=== PATIENT | female | born 1985 | race Two or more races ===

== ENCOUNTER → 2020-01-18 | Outpatient (CLI) | payer SELFPAY ==
--- NOTE | 2020-01-18 14:14 | RADIOLOGY REPORT (SQ) ---
EXAM DESCRIPTION: U/S [id number] TRNABD 1GES W/ODOP IMAGES COMPLETED DATE/TIME: 01/18/2020 2:01 pm REASON FOR STUDY: Z34.81 ENCOUNTER FOR SUPRVSN OF NORMAL , FIRST TRIMESTER Z34.81 ENCOUNTE R FOR SUPRVSN OF NORMAL , FIRST TRIM COMPARISON: None. TECHNIQUE: Transabdominal static and realtime grayscale images acquired of the pelvis. Additional se lected spectral and color Doppler images recorded. All images stored on PACs. bHCG: Not applicable. CLINICAL DATES: 9 weeks 3 days. LIMITATIONS: None. FINDINGS: FETUS: Single Living intrauterine . ULTRASOUND EGA: 8 weeks 3 days. ULTRASOUND MANOLO: 08/26/2020 EFW: Not applicable less than 20 weeks. CRL: 1.9 cm. FHR: 171 beats per minute. SURVEY: No visualized anomalies. AMNIOTIC FLUID: Adequate amount. PLACENTA: Not yet developed due to early gestation. SUBCHORIONIC BLEED: Yes SIZE OF BLEED: 1.9 x 1.6 x 1.1 cm. UTERUS: No masses. No anomalies. CERVICAL LENGTH: 3.7 cm. Closed. RIGHT ADNEXA: Normal ovary with normal vascular flow. 3 x 1.5 x 1.6 cm. No adnexal free fluid. No adnexal masses. LEFT ADNEXA: Normal ovary with normal vascular flow. 4.7 x 4.1 x 2.3 cm. No adnexal free fluid. No adnexal masses. FREE FLUID: None. OTHER: No other significant finding. IMPRESSION: LIVING INTRAUTERINE . EGA 8 weeks 3 days. Trimester of : First trimester - 0 to 13 weeks. TECHNICAL DOCUMENTATION: JOB ID: [id number] [employer]- All Rights Reserved rev-01/22 Reading location - IP/workstation name: [email or web address]
== END ==
LOC: RAD 12:52
PROVIDERS: ATTEND Midwife
DX: Z34.81 Encounter for supervision of other normal pregnancy, first trimester (principal); Z3A.08 8 weeks gestation of pregnancy
CPT/HCPCS: 76801

== ENCOUNTER 2020-02-14 22:19 | Emergency (ER) | payer SELFPAY ==
--- NOTE | 2020-02-14 23:05 | ER Document Report ---
ED Medical Screen (RME) - General Chief Complaint: Vaginal Bleeding Stated Complaint: VAGINAL BLEEDING Time Seen by Provider: 02/14/20 23:04 Primary Care Provider: YESSICA ALCANTARA CNM [Primary Care Provider] - Follow up as needed Information source: Patient Notes: Patient presents 12 weeks G7, P6. Patient states she developed low back pain, low pelvic pain and vaginal bleeding today. Patient states she has had spotting that is pink and brown in color. No urinary symptoms. Patient's blood type is O+. I have greeted and performed a rapid initial assessment of this patient. A c omprehensive ED assessment and evaluation of the patient, analysis of test results and completion of the medical decision making process will be conducted by additional ED providers. TRAVEL OUTSIDE OF THE [place] IN LAST 30 DAYS: No - Related Data Allergies/Adverse Reactions: No Known Allergies Allergy (Verified 12/24/14 05:55) Physical Exam - Vital signs Vitals: Temp Pulse Resp BP Pulse Ox 98.4 F 91 16 113/77 99 02/14/20 22:28 02/14/20 22:28 02/14/20 22:28 02/14/20 22:28 02/14/20 22:28 - General Notes: Lower pelvic, lower back tenderness Course - Vital Signs Vital signs: Temp Pulse Resp BP Pulse Ox 98.4 F 91 16 113/77 99 02/14/20 22:28 02/14/20 22:28 02/14/20 22:28 02/14/20 22:28 02/14/20 22:28 Doctor's Discharge - Discharge Referrals: YESSICA ALCANTARA CNM [Primary Care Provider] - Follow up as needed
--- NOTE | 2020-02-15 00:49 | RADIOLOGY REPORT (SQ) ---
EXAM DESCRIPTION: US TRANSVAGINAL COMPLETED DATE/TME: 02/14/2020 23:04 CLINICAL HISTORY: 34 years, Female, vag bleeding, low back/pelvic pain COMPARISON: 01/18/2020 TECHNIQUE: Emergent OB ultrasound LIMITATIONS: None. FINDINGS: The uterus measures 13 x 10 x 8 cm. There is an intrauterine gestational sac and pole. However, there are no detectable heart tones and findings are worrisome for demise. Ultrasound age is 9 weeks 2 days based on mean crown-rump length. The right ovary measures 2.8 x 1.4 x 1.4 cm, the left 3.5 x 1.4 x 1.5 cm. Normal flow to each ovary. No adnexal cyst or mass. No free fluid IMPRESSION: Intrauterine gestation with pole however there are no detectable heart tones. Findings are worrisome for demise. Close obstetric follow-up recommended copyright 2010 [employer]- All Rights Reserved
[2020-02-15 01:41] LABS: ABSOLUTE BASOPHILS # (AUTO) 0.1 10^3/uL (0.0-0.2); ABSOLUTE EOSINOPHILS # (AUTO) 0.1 10^3/uL (0.0-0.6); ABSOLUTE LYMPHOCYTES (AUTO) 2.1 10^3/uL (0.5-4.7); ABSOLUTE MONOCYTES (AUTO) 0.5 10^3/uL (0.1-1.4); BASOPHILS % (AUTO) 0.8 % (0-2); EOSINOPHILS % (AUTO) 0.7 % (0-6); HEMATOCRIT 40.2 % (36.0-47.0); HEMOGLOBIN 13.6 g/dL (12.0-15.5); LYMPHOCYTES % (AUTO) 21.7 % (13-45); MEAN CORPUSCULAR HEMOGLOBIN 29.8 pg (27.0-33.4); MEAN CORPUSCULAR HGB CONC 33.9 g/dL (32.0-36.0); MEAN CORPUSCULAR VOLUME 88 fl (80-97); PLATELET COUNT 219 10^3/uL (150-450); RED BLOOD COUNT 4.58 10^6/uL (3.72-5.28); RED CELL DISTRIBUTION WIDTH 14.2 % (11.5-14.0); SEGMENTED NEUTROPHILS % (AUTO) 71.8 % (42-78); TOTAL CELLS COUNTED % (AUTO) 100 %; WHITE BLOOD COUNT 9.7 10^3/uL (4.0-10.5)
[2020-02-15 01:52] LABS: APPEARANCE,URINE CLOUDY; BILIRUBIN,URINE NEGATIVE (NEGATIVE); COLOR,URINE YELLOW; GLUCOSE, URINE NEGATIVE (NEGATIVE); KETONES,URINE TRACE mg/dL (NEGATIVE); LEUKOCYTE ESTERASE,URINE TRACE (NEGATIVE); NITRITE,URINE NEGATIVE (NEGATIVE); PROTEIN,URINE 30 mg/dL (NEGATIVE); URINE SPECIFIC GRAVITY 1.035
[2020-02-15 01:55] LABS: ALBUMIN 4.3 g/dL (3.5-5.0); ALKALINE PHOSPHATASE 61 U/L (38-126); ANION GAP 8 (5-19); ASPARTATE AMINO TRANSFERASE 21 U/L (14-36); BILIRUBIN,TOTAL 0.4 mg/dL (0.2-1.3); BLOOD UREA NITROGEN 14 mg/dL (7-20); CALCIUM 9.9 mg/dL (8.4-10.2); CARBON DIOXIDE 25 mmol/L (22-30); CHLORIDE 103 mmol/L (98-107); GLUCOSE 103 mg/dL (75-110); POTASSIUM 4.8 mmol/L (3.6-5.0); TOTAL PROTEIN 7.9 g/dL (6.3-8.2)
[2020-02-15 02:14] LABS: ADD MANUAL MICROSCOPIC YES
[2020-02-15 02:15] LABS: BACTERIA,URINE TRACE /HPF
--- NOTE | 2020-02-15 04:20 | ER Document Report ---
ED General - General Chief Complaint: OB Problem (<20wks) Stated Complaint: VAGINAL BLEEDING Time Seen by Provider: 02/14/20 23:04 Primary Care Provider: YESSICA HAHN CNM [Primary Care Provider] - Follow up as needed Notes: 34-year-old female presents the emergency department complaining of vaginal bleeding starting within the past 24 hours. Says it is light pink and brown. Is not going through more than 1 pad per hour. Minimal lower abdominal pain. Patient is a G7, P6, according to dates she should be approximately 12 weeks gestation. Denies any trauma to the abdomen. Patient has had prior blood work and shows she is O+. TRAVEL OUTSIDE OF THE [place] IN LAST 30 DAYS: No - Related Data Allergies/Adverse Reactions: No Known Allergies Allergy (Verified 12/24/14 05:55) Home Medications: vit b6. vit Past Medical History - General Information source: Patient - Social History Smoking Status: Never Smoker Family History: Reviewed & Not Pertinent Patient has homicidal ideation: No Review of Systems - Review of Systems Constitutional: No symptoms reported Gastrointestinal: See HPI, Abdominal pain Female Genitourinary: See HPI, -: Yes All other systems reviewed and negative Physical Exam - Vital signs Vitals: Temp Pulse Resp BP Pulse Ox 98.4 F 91 16 113/77 99 02/14/20 22:28 02/14/20 22:28 02/14/20 22:28 02/14/20 22:28 02/14/20 22:28 Interpretation: Normal - Notes Notes: GENERAL: Alert, interacts well. No acute distress. HEAD: Normocephalic, atraumatic EYES: Pupils equal, round and reactive to light, extraocular movements intact. ENT: Oral mucosa moist, tongue midline. NECK: Full range of motion, supple, trachea midline. LUNGS: no respiratory distress. EXTREMITIES: Moves all 4 extremities spontaneously. No cyanosis. NEUROLOGICAL: Alert and oriented x3, normal speech. PSYCH: Normal mood, normal affect until given the news of the miscarriage then she is appropriately tearful. SKIN: Warm, Dry. Course - Re-evaluation Re-evalutation: 02/15/20 04:16 CBC unremarkable, CMP shows slightly low sodium 136.3, quantitative hCG is lower than expected for dates at 5662. Urinalysis shows trace ketones and trace leukocyte esterase, no blood. OB ultrasound is highly suspicious for miscarriage with absent heart tones and dates at 9 weeks gestation. Obstetrics Ultrasound 02/14/20 23:04 IMPRESSION: Intrauterine gestation with pole however there are no detectable heart tones. Findings are worrisome for demise. Close obstetric follow-up recommended copyright 2010 [employer]- All Rights Reserved Discussed with Dr. Hahn who states that women who have miscarriages between 8 and 12 weeks frequently have difficulty passing them on their own, recommends follow-up in his office to discuss D&C. Patient has old blood work on file showing blood type is O+. RhoGam is not indicated. Patient will have COVID swab performed today in order to prep for potential surgery. Patient's partner was informed in the room with her as well. Patient will be discharged home and given follow-up information for Dr. Hahn's office. - Vital Signs Vital signs: Temp Pulse Resp BP Pulse Ox 98.2 F 85 18 103/74 98 02/15/20 02:18 02/15/20 02:18 02/15/20 02:18 02/15/20 02:18 02/15/20 02:18 - Laboratory Result Diagrams: 02/15/20 01:09 02/15/20 01:09 Laboratory results interpreted by me: 02/15/20 02/15/20 02/15/20 01:09 01:09 01:09 RDW 14.2 H Sodium 136.3 L Beta HCG, Quant 5662.00 H Urine Protein 30 H Urine Ketones TRACE H Urine Urobilinogen 2.0 H Ur Leukocyte Esterase TRACE H Urine Ascorbic Acid 40 H Discharge - Discharge Clinical Impression: Miscarriage Condition: Stable Disposition: HOME, SELF-CARE Additional Instructions: Miscarriage Impending You have been evaluated for a possible miscarriage. At this time, it appears that the fetus has stopped growing. A miscarriage occurs when the fetus is abnormal. There is no medicine or treatment to prevent it. Based off the fact that the baby was 9 weeks old when it stopped growing you will likely need surgery. This is called a D&C procedure. You should rest in bed. Do not douche or have sex for at least a week, or until OK'd by the doctor. If you believe you've passed the fetus, collect it in a zip-lock plastic bag. Be sure to follow up with your doctor. Call the doctor or return for re- examination if there is an increase in bleeding or cramping, extreme weakness, fainting, fever, or passage of tissue. We have performed a COVID test this evening to look for the novel coronavirus and to make sure you are safe to have surgery. I have discussed your case with Dr. Hahn from [facility]. He would like you to call the office later today to arrange an appointment to follow-up on your miscarriage and discuss possible surgery. Forms: Return to Work, Parent Work Note Referrals: KATERINE HAHN MD [ACTIVE STAFF] - Follow up as needed
[2020-02-15 05:12] VITALS: BP 132/82
== END 2020-02-15 05:11 | disposition home or self-care (01) ==
LOC: ER 22:19
DX: Z03.818 Encounter for observation for suspected exposure to other biological agents ruled out (principal); O03.9 Complete or unspecified spontaneous abortion without complication; R10.30 Lower abdominal pain, unspecified; Z79.899 Other long term (current) drug therapy
CPT/HCPCS: 99284; 36415; 84702; 85025; 87635; 80053; 81001; 76817; C9803

== ENCOUNTER 2020-02-16 01:32 | Observation (INO) | payer SELFPAY ==
[2020-02-16] MEDS ORDERED: NORMAL SALINE 1000 ML 1,000 ML IV ONE ×2 (02:53→04:35)
--- NOTE | 2020-02-16 02:53 | ER Document Report ---
ED General - General Chief Complaint: OB Problem (<20wks) Stated Complaint: VAGINAL BLEEDING Primary Care Provider: YESSICA ALCANTARA CNM [Primary Care Provider] - Follow up as needed Notes: Patient is a 34-year-old female who is G7, P6 at approximately 3 months gestation who presents to the emergency department the chief complaint of heavy vaginal bleeding that began yesterday at 6 PM. Patient was seen here a day prior and had an ultrasound suspicious for demise. She has not followed up outpatient. She states that she was previously seeing the health department for . She admits to some mild suprapubic discomfort but otherwise complaining of ongoing bleeding of bright red blood with clotting. Denies history of miscarriage. Denies any other pain, complaints or concerns at this time. TRAVEL OUTSIDE OF THE [place] IN LAST 30 DAYS: No - Related Data Allergies/Adverse Reactions: No Known Allergies Allergy (Verified 02/16/20 02:28) Home Medications: Past Medical History - Social History Smoking Status: Never Smoker Family History: Reviewed & Not Pertinent Patient has homicidal ideation: No Review of Systems - Review of Systems Female Genitourinary: , Vaginal bleeding -: Yes All other systems reviewed and negative Physical Exam - Vital signs Vitals: Temp Pulse Resp BP Pulse Ox 98.6 F 150 H 16 139/76 H 99 02/16/20 01:46 02/16/20 01:46 02/16/20 01:46 02/16/20 01:46 02/16/20 01:46 - General General appearance: Alert, Anxious In distress: None - Respiratory Respiratory status: No respiratory distress Chest status: Nontender Breath sounds: Normal Chest palpation: Normal - Cardiovascular Rhythm: Regular Heart sounds: Normal auscultation - Abdominal Inspection: Normal Distension: No distension Bowel sounds: Normal Tenderness: Nontender Organomegaly: Other - Palpable gravid uterus suprapubic region - Genitourinary External exam: Normal Speculum exam: Other - Cervix not visualized due to heavy bleeding and clotting. Multiple clots removed, bleeding continues. Vaginal bleeding: Heavy Notes: Chaperoned by female tech and female nurse. - Back Back: No: CVA tenderness - Neurological Neuro grossly intact: Yes Cognition: Normal Orientation: AAOx4 Bear Coma Scale Eye Opening: Spontaneous [place] Coma Scale Verbal: Oriented Bear Coma Scale Motor: Obeys Commands [place] Coma Scale Total: 15 Speech: Normal - Psychological Associated symptoms: Normal affect, Normal mood - Skin Skin Temperature: Warm Skin Moisture: Dry Skin Color: Normal Course - Re-evaluation Re-evalutation: 02/16/20 03:56 EKG given patient's persistent tachycardia showing sinus tach at 134 bpm. Normal intervals. No STEMI. No prior for comparison. Interpreted by ED attending. Patient's blood pressure remains stable. A liter of normal saline was hung prophylactically. Patient has 2 large-bore IVs. She has persistent moderate to heavy bleeding with clot passage. This is been ongoing. Her hemoglobin is stable. Pending ultrasound will consult with OB for suspected admission for observation and possible D&C. 02/16/20 05:45 Patient's blood pressures remaining stable. Her heart rate is mildly tachycardic when in a resting position and jumps to the 170s with sitting up or any movement. She does appear slightly pale. She is still bleeding copious amounts. She appears slightly altered. 3 repeat hemoglobin series showed steady decrease in her hemoglobin since her arrival. Discussed with Dr. Hoffmann who recommended emergency blood transfusion and possible uterine tamponade until OB can be reached. OB was currently in a procedure in the operating room and could not be consulted. Patient is stable in Trendelenburg at this time with a stable blood pressure and heart rate of 121. She is in no obvious distress. 02/16/20 06:[address] Dominguez, [employer] at this time. She is going to come down right now and evaluate the patient in the ED. 02/16/20 07:08 Dr. Dominguez to bedside, evaluated the patient in the emergency department and will admit to the OR for further care and management. Patient pending rapid COVID testing prior to OR care. She is stable. - Vital Signs Vital signs: Temp Pulse Resp BP Pulse Ox 97.9 F 150 H 21 H 112/87 H 100 02/16/20 05:48 02/16/20 01:46 02/16/20 06:10 02/16/20 06:10 02/16/20 06:10 - Laboratory Result Diagrams: 02/16/20 05:07 02/16/20 02:20 Laboratory results interpreted by me: 02/16/20 02/16/20 02/16/20 02:20 02:20 03:11 WBC RBC Hgb Hct RDW 14.2 H Lymph % (Auto) 12.7 L Absolute Neuts (auto) 8.4 H Seg Neutrophils % 82.3 H Potassium 3.5 L Carbon Dioxide 21 L Glucose 129 H Beta HCG, Quant 4114.00 H Crossmatch See Detail 02/16/20 02/16/20 04:07 05:07 WBC 12.1 H 12.7 H RBC 3.70 L Hgb 11.3 L 10.9 L Hct 34.1 L 32.5 L RDW 14.3 H 14.2 H Lymph % (Auto) Absolute Neuts (auto) Seg Neutrophils % Potassium Carbon Dioxide Glucose Beta HCG, Quant Crossmatch Discharge - Discharge Clinical Impression: Incomplete , Vaginal bleeding, demise Anemia Qualifiers: Anemia type: unspecified type Qualified Code(s): D64.9 - Anemia, unspecified Condition: Serious Disposition: ADMITTED INPATIENT Admitting Provider: Dr. Dominguez Unit Admitted: OR Referrals: YESSICA ALCANTARA CNM [Primary Care Provider] - Follow up as needed
[2020-02-16 03:14] LABS: ABSOLUTE BASOPHILS # (AUTO) 0.1 10^3/uL (0.0-0.2); ABSOLUTE LYMPHOCYTES (AUTO) 1.3 10^3/uL (0.5-4.7); ABSOLUTE MONOCYTES (AUTO) 0.4 10^3/uL (0.1-1.4); ABSOLUTE NEUT (AUTO) 8.4 10^3/uL (1.7-8.2); BASOPHILS % (AUTO) 0.6 % (0-2); EOSINOPHILS % (AUTO) 0.2 % (0-6); HEMATOCRIT 39.6 % (36.0-47.0); HEMOGLOBIN 13.3 g/dL (12.0-15.5); LYMPHOCYTES % (AUTO) 12.7 % (13-45); MEAN CORPUSCULAR HEMOGLOBIN 29.6 pg (27.0-33.4); MEAN CORPUSCULAR HGB CONC 33.7 g/dL (32.0-36.0); MEAN CORPUSCULAR VOLUME 88 fl (80-97); MONOCYTES % (AUTO) 4.2 % (3-13); PLATELET COUNT 229 10^3/uL (150-450); RED BLOOD COUNT 4.52 10^6/uL (3.72-5.28); RED CELL DISTRIBUTION WIDTH 14.2 % (11.5-14.0); SEGMENTED NEUTROPHILS % (AUTO) 82.3 % (42-78); TOTAL CELLS COUNTED % (AUTO) 100 %; WHITE BLOOD COUNT 10.3 10^3/uL (4.0-10.5)
[2020-02-16 03:21] LABS: ALKALINE PHOSPHATASE 64 U/L (38-126); ANION GAP 10 (5-19); ASPARTATE AMINO TRANSFERASE 19 U/L (14-36); BILIRUBIN,TOTAL 0.5 mg/dL (0.2-1.3); BLOOD UREA NITROGEN 9 mg/dL (7-20); CALCIUM 9.2 mg/dL (8.4-10.2); CARBON DIOXIDE 21 mmol/L (22-30); CHLORIDE 107 mmol/L (98-107); GLUCOSE 129 mg/dL (75-110); POTASSIUM 3.5 mmol/L (3.6-5.0); TOTAL PROTEIN 7.3 g/dL (6.3-8.2)
[2020-02-16 03:32] LABS: INTERNATIONAL RATION (INR) 1.07; PARTIAL THROMBOPLASTIN TIME 29.6 SEC (23.5-35.8); PROTHROMBIN TIME 13.9 SEC (11.4-15.4)
[2020-02-16 04:21] LABS: HEMATOCRIT 34.1 % (36.0-47.0); HEMOGLOBIN 11.3 g/dL (12.0-15.5); MEAN CORPUSCULAR HEMOGLOBIN 29.4 pg (27.0-33.4); MEAN CORPUSCULAR HGB CONC 33.2 g/dL (32.0-36.0); MEAN CORPUSCULAR VOLUME 89 fl (80-97); PLATELET COUNT 195 10^3/uL (150-450); RED BLOOD COUNT 3.85 10^6/uL (3.72-5.28); RED CELL DISTRIBUTION WIDTH 14.3 % (11.5-14.0); WHITE BLOOD COUNT 12.1 10^3/uL (4.0-10.5)
--- NOTE | 2020-02-16 04:44 | RADIOLOGY REPORT (SQ) ---
FIRST TRIMESTER OBSTETRIC ULTRASOUND: 02/16/2020 3:40 AM CDT COMPARISON: Ultrasound from 02/14/2020 HISTORY: 34-year old patient with heavy bleeding, , declining quantitative beta hCG levels. TECHNIQUE: Multiple harvey scale and color Doppler images of the pelvis were obtained transabdominally and transvaginally. FINDINGS: The uterus measures 14.9 x 8.6 x 6.8 cm. No intrauterine gestational sac is seen. The endometrium is thickened and heterogeneous measuring at least 2.7 cm. No obvious increased color Doppler vascularity is seen. The cervix measures 3.6 cm in length. There is hyperechoic increased density seen at the vaginal canal consistent with hematoma formation or products of conception. The right and left ovaries are normal in size and sonographic appearance. The right ovary measures 3.8 x 1.4 x 2.2 cm. The left ovary measures 3.9 x 1.5 x 1.9 cm. Arterial and venous waveforms are obtained from both ovaries. There is a probable physiologic cyst at the left ovary measuring at least 2.1 cm. No free fluid is seen in the cul-de-sac. IMPRESSION: No intrauterine gestational sac is seen. The endometrium is thickened and heterogeneous. There are hypoechoic areas within the vaginal canal likely representing hematoma or products of conception. These findings most likely represent a failed intrauterine . Interval follow-up is recommended to exclude retained products of conception. Obstetric follow up for routine care should be performed.
[2020-02-16 05:21] LABS: HEMATOCRIT 32.5 % (36.0-47.0); HEMOGLOBIN 10.9 g/dL (12.0-15.5); MEAN CORPUSCULAR HEMOGLOBIN 29.5 pg (27.0-33.4); MEAN CORPUSCULAR HGB CONC 33.6 g/dL (32.0-36.0); MEAN CORPUSCULAR VOLUME 88 fl (80-97); PLATELET COUNT 212 10^3/uL (150-450); RED CELL DISTRIBUTION WIDTH 14.2 % (11.5-14.0); WHITE BLOOD COUNT 12.7 10^3/uL (4.0-10.5)
[2020-02-16] MEDS ORDERED: NORMAL SALINE 250 ML IV PRN ×2 (05:24)
[2020-02-16] MEDS ORDERED: TRANEXAMIC ACID INJ/PF 1,000 MG/10 ML SDV ONE (05:39)
[2020-02-16] MEDS ORDERED: TRANEXAMIC ACID INJ/PF 1,000 MG/10 ML SDV IV ONE (05:44)
[2020-02-16 07:27] LABS: ABSOLUTE BASOPHILS # (AUTO) 0.1 10^3/uL (0.0-0.2); ABSOLUTE LYMPHOCYTES (AUTO) 1.1 10^3/uL (0.5-4.7); ABSOLUTE MONOCYTES (AUTO) 0.6 10^3/uL (0.1-1.4); ABSOLUTE NEUT (AUTO) 11.2 10^3/uL (1.7-8.2); BASOPHILS % (AUTO) 0.4 % (0-2); EOSINOPHILS % (AUTO) 0.1 % (0-6); HEMATOCRIT 38.6 % (36.0-47.0); LYMPHOCYTES % (AUTO) 8.4 % (13-45); MEAN CORPUSCULAR HEMOGLOBIN 29.8 pg (27.0-33.4); MEAN CORPUSCULAR VOLUME 88 fl (80-97); MONOCYTES % (AUTO) 4.3 % (3-13); PLATELET COUNT 181 10^3/uL (150-450); RED CELL DISTRIBUTION WIDTH 14.3 % (11.5-14.0); SEGMENTED NEUTROPHILS % (AUTO) 86.8 % (42-78); TOTAL CELLS COUNTED % (AUTO) 100 %; WHITE BLOOD COUNT 12.9 10^3/uL (4.0-10.5)
[2020-02-16 07:31] LABS: HEMOGLOBIN 13.1 g/dL (12.0-15.5)
--- NOTE | 2020-02-16 07:53 | PDOC H&P ---
History of Present Illness Admission Date/PCP: YESSICA ALCANTARA CNM History of Present Illness: NIRMALA LUCERO is a 34 year old female at approximately 9-12 mos EGA by patient history. She reports having desired this but began to have heavy bleeding last night about 1830. Passing clots which made her come to ED No pain presently but cramping is heavy when clots pass. Past Medical History LMP: 11/13/19 Social History Smoking Status: Never Smoker Family History Family History: Reviewed & Not Pertinent Parental Family History Reviewed: Yes Children Family History Reviewed: Yes Sibling(s) Family History Reviewed.: Yes Medication/Allergy Home Medications: Ferrous Sulfate [Iron Supplement] 325 mg PO BID 12/24/14 No.137/Iron/Folic Acd [ Vitamin Tablet] 1 each PO DAILY 12/24/14 Allergies/Adverse Reactions: No Known Allergies Allergy (Verified 02/16/20 02:28) Review of Systems Constitutional: ABSENT: chills, fever(s), headache(s), weight gain, weight loss Cardiovascular: ABSENT: chest pain, dyspnea on exertion, edema, orthropnea, palpitations Respiratory: ABSENT: cough, hemoptysis Gastrointestinal: ABSENT: abdominal pain, constipation, diarrhea, hematemesis, hematochezia, nausea, vomiting Genitourinary: ABSENT: dysuria, hematuria Integumentary: ABSENT: rash, wounds Physical Exam - Physical Exam Vital Signs: Temp Pulse Resp BP Pulse Ox 97.9 F 150 H 21 H 112/87 H 100 02/16/20 05:48 02/16/20 01:46 02/16/20 06:10 02/16/20 06:10 02/16/20 06:10 Intake & Output 02/15/20 02/16/20 02/17/20 06:59 06:59 06:59 Intake Total 1999 Balance 1999 Weight 65.771 kg General appearance: PRESENT: no acute distress, cooperative Respiratory exam: PRESENT: clear to auscultation fortunato Cardiovascular exam: PRESENT: RRR, +S1, +S2 GI/Abdominal exam: PRESENT: soft, other - Uterus palpable at about 14 wks size Extremities exam: PRESENT: full ROM. ABSENT: calf tenderness, clubbing, pedal edema Neurological exam: PRESENT: alert, awake Skin exam: PRESENT: dry, warm - Gynecological Exam Labia: normal Urethra: normal Introitus: normal Perineum: normal, other - Pad with small amount of bleeding. NO clots Result Laboratory Results: 02/16/20 05:07 02/16/20 02:20 02/16/20 02/16/20 02/16/20 02:20 02:20 03:11 WBC 10.3 RBC 4.52 Hgb 13.3 Hct 39.6 MCV 88 MCH 29.6 MCHC 33.7 RDW 14.2 H Plt Count 229 Seg Neutrophils % 82.3 H Sodium 138.1 Potassium 3.5 L Chloride 107 Carbon Dioxide 21 L Anion Gap 10 BUN 9 Creatinine 0.62 Est GFR ( Amer) > 60 Glucose 129 H Calcium 9.2 Total Bilirubin 0.5 AST 19 Alkaline Phosphatase 64 Total Protein 7.3 Albumin 4.0 Blood Type O POSITIVE Antibody Screen NEGATIVE 02/16/20 02/16/20 04:07 05:07 WBC 12.1 H 12.7 H RBC 3.85 3.70 L Hgb 11.3 L 10.9 L Hct 34.1 L 32.5 L MCV 89 88 MCH 29.4 29.5 MCHC 33.2 33.6 RDW 14.3 H 14.2 H Plt Count 195 212 Seg Neutrophils % Sodium Potassium Chloride Carbon Dioxide Anion Gap BUN Creatinine Est GFR ( Amer) Glucose Calcium Total Bilirubin AST Alkaline Phosphatase Total Protein Albumin Blood Type Antibody Screen Impressions: Obstetrics Ultrasound 02/16/20 02:49 IMPRESSION: No intrauterine gestational sac is seen. The endometrium is thickened and heterogeneous. There are hypoechoic areas within the vaginal canal likely representing hematoma or products of conception. These findings most likely represent a failed intrauterine . Interval follow-up is recommended to exclude retained products of conception. Obstetric follow up for routine care should be performed. Assessment & Plan - Diagnosis (1) Anemia Qualifiers: Anemia type: unspecified type Qualified Code(s): D64.9 - Anemia, unspecified Is this a current diagnosis for this admission?: Yes (2) Incomplete Is this a current diagnosis for this admission?: Yes (3) Vaginal bleeding Is this a current diagnosis for this admission?: Yes - Plan Summary Plan Summary: 34 yo at approximately 12 wks by Patient record of LMP now with incomplete and heavy vaginal bleeding -VS with tachycardia. B/P stable presently -S/p tranexamic acid, bakri balloon and 2 units PRBCs -NOw with Hgb of 13.1, coags normal -RH positive -US at bedside showed POC -Discussed heavy vaginal bleeding and retained POC. Recommend suction D&C. -RIsks and benefits discused and consent signed -Covid 19 testing pending
--- NOTE | 2020-02-16 07:53 | EKG REPORT ---
SEVERITY:- OTHERWISE NORMAL ECG - SINUS TACHYCARDIA LEFT AXIS DEVIATION : Confirmed by: Clarissa Grigsby MD 16-Feb-2020 07:52:48
[2020-02-16] MEDS ORDERED: DEXTROSE 50%-WATER 25 GM/50 ML DISP.SYRIN IV PRN ×2 (11:09)
[2020-02-16] MEDS ORDERED: RINGERS SOLUTION,LACTATED 1,000 ML IV PRN ×2 (11:09→21:58)
[2020-02-16] MEDS ORDERED: GLUCAGON,HUMAN RECOMB 1 MG INJ SUBCUT PRN (11:09)
[2020-02-16] MEDS ORDERED: DEXTROSE 40% GEL 15 GM TUBE PO PRN ×2 (11:09)
[2020-02-16] MEDS ORDERED: RINGERS SOLUTION,LACTATED 1,000 ML IV ONE ×2 (11:10→22:45)
[2020-02-16] MEDS ORDERED: DOXYCYCLINE HYCLATE INJ 100 MG VIAL IV ONE (11:11)
[2020-02-16] MEDS ORDERED: DIPHENHYDRAMINE HCL 50 MG/ML VIAL IV PRN (12:27)
[2020-02-16] MEDS ORDERED: MEPERIDINE HCL/PF INJ 25 MG/1 ML DISP.SYRIN IV PRN (12:27)
[2020-02-16] MEDS ORDERED: ONDANSETRON HCL INJ/PF 4 MG/2 ML SDV IV PRN (12:27)
[2020-02-16] MEDS ORDERED: PROMETHAZINE HCL INJ 25 MG/1 ML VIAL IV PRN (12:27)
[2020-02-16] MEDS ORDERED: FENTANYL CITRATE INJ/PF 100 MCG/2 ML AMPUL IV PRN ×3 (12:27)
[2020-02-16] MEDS ORDERED: OXYCODONE-ACETAMINOPHEN 5-325 MG TABLET PO PRN (12:27)
[2020-02-16] MEDS ORDERED: MORPHINE SULFATE 10 MG/ML INJ IV PRN (12:27)
[2020-02-16] MEDS ORDERED: CEFAZOLIN INJ 1 GM VIAL ONE ×2 (12:46→13:19)
[2020-02-16] MEDS ORDERED: DOXYCYCLINE HYCLATE 200 MG in DEXTROSE 5%-WATER 250 ML IV ONE (13:00)
[2020-02-16] MEDS ORDERED: FENTANYL CITRATE INJ/PF 100 MCG/2 ML AMPUL ONE (13:08)
[2020-02-16] MEDS ORDERED: PROPOFOL INJ 200 MG/20 ML VIAL IV ONE (13:09)
[2020-02-16] MEDS ORDERED: MIDAZOLAM 2 MG/2 ML INJ ONE (13:09)
[2020-02-16] MEDS ORDERED: LIDOCAINE 1%/EPINEPHRINE INJ 20 ML VIAL ONE (13:14)
[2020-02-16] MEDS ORDERED: METHYLERGONOVINE MALEATE INJ/PF 0.2 MG/1 ML AMPULE ONE (13:14)
--- NOTE | 2020-02-16 13:50 | Operative Report ---
Operative Report DATE OF SURGERY: 02/16/20 PREOPERATIVE DIAGNOSIS: Complete AB POSTOPERATIVE DIAGNOSIS: Signed OPERATION: Suction D&C SURGEON: DARY MINER ANESTHESIA: GA TISSUE REMOVED OR ALTERED: Uterine contents products of conception ESTIMATED BLOOD LOSS: 25 cc PROCEDURE: After appropriate consents had been obtained, the patient was taken to the Operating Room where general anesthesia was placed without difficulty. She was prepped and draped in the normal sterile fashion in the dorsal lithotomy position. Exam under anesthesia was performed with an 8 week sized uterus and no adnexal pathology palpable. Straight catheter urine was obtained and approximately 50 mL of urine. A speculum was placed in the vagina. The anterior lip the cervix was grasped with a single-tooth tenaculum. The uterus sounded to 8 cm. Sequential dilators were then used to dilate the cervix to a size 24. Size 8 suction catheter was introduced and products of conception were removed. The suction catheter was removed and gentle curettage was then undertaken throughout the cavity. The suction catheter was introduced once again and additional products of conception and blood clot were removed. The curette was once again introduced and the cavity was,felt to be empty of further tissue. All instruments were then removed. The uterus was hemostatic. Sponge counts were correct. Patient tolerated procedure well and transferred to recovery in stable condition. Sameer and C
[2020-02-16] MEDS ORDERED: DEXTROSE 5%-LACTATED RINGERS 1,000 ML IV PRN (14:12)
[2020-02-16] MEDS ORDERED: ONDANSETRON 4 MG TAB.RAPDIS PO PRN (14:13)
[2020-02-16 15:10] LABS: CHLAM PCR NOT DETECTED (NOT DETECT)
[2020-02-16] MEDS ORDERED: DEXAMETHASONE SOD PHOSPHATE INJ 4 MG/1 ML VIAL ONE (15:11)
[2020-02-16] MEDS ORDERED: ONDANSETRON HCL INJ/PF 4 MG/2 ML SDV ONE (15:11)
[2020-02-16] MEDS ORDERED: KETOROLAC TROMETHAMINE 60 MG/2 ML SDV ONE (15:11)
[2020-02-16 17:00] LABS: BILIRUBIN,URINE NEGATIVE (NEGATIVE); GLUCOSE, URINE NEGATIVE (NEGATIVE); KETONES,URINE NEGATIVE (NEGATIVE); PROTEIN,URINE 100 mg/dL (NEGATIVE); URINE SPECIFIC GRAVITY 1.009; UROBILINOGEN,URINE NEGATIVE mg/dL (<2.0)
[2020-02-16 17:03] LABS: APPEARANCE,URINE TURBID; COLOR,URINE RED
[2020-02-16 20:18] LABS: ABSOLUTE LYMPHOCYTES (AUTO) 0.6 10^3/uL (0.5-4.7); ABSOLUTE MONOCYTES (AUTO) 0.2 10^3/uL (0.1-1.4); BASOPHILS % (AUTO) 0.3 % (0-2); HEMATOCRIT 37.7 % (36.0-47.0); HEMOGLOBIN 12.7 g/dL (12.0-15.5); LYMPHOCYTES % (AUTO) 6.9 % (13-45); MEAN CORPUSCULAR HEMOGLOBIN 29.4 pg (27.0-33.4); MEAN CORPUSCULAR HGB CONC 33.6 g/dL (32.0-36.0); MEAN CORPUSCULAR VOLUME 88 fl (80-97); MONOCYTES % (AUTO) 1.9 % (3-13); PLATELET COUNT 182 10^3/uL (150-450); RED BLOOD COUNT 4.31 10^6/uL (3.72-5.28); RED CELL DISTRIBUTION WIDTH 14.3 % (11.5-14.0); SEGMENTED NEUTROPHILS % (AUTO) 90.9 % (42-78); TOTAL CELLS COUNTED % (AUTO) 100 %; WHITE BLOOD COUNT 8.8 10^3/uL (4.0-10.5)
--- NOTE | 2020-02-16 20:34 | PDOC DISCHARGE SUMMARY ---
Impression - Admit/DC Date/PCP Admission Date/Primary Care Provider: 02/16/20 07:17 YESSICA ALCANTARA CNM Discharge Date: 02/16/20 - Discharge Diagnosis (1) S/P dilatation and curettage Is this a current diagnosis for this admission?: Yes (2) Incomplete Is this a current diagnosis for this admission?: Yes (3) Vaginal bleeding Is this a current diagnosis for this admission?: Yes - Assessment Summary: Patient came in through the ER approx 9-12wks and having increased va ginal bleeding. US consistent with products of conception retained. Before patient was evaluated by MILL AND COAL TRANSPORT OPERATOR, ER gave patient TXA and placed a Bakri Balloon, and initiated transfusion. Upon evaluation by MILL AND COAL TRANSPORT OPERATOR Hct 32.5 (before transfusion completed) and decision was made to proceed to the OR for suction D&C. GC/CT negative. COVID negative. - Additional Information Resuscitation Status: Full Code Discharge Diet: As Tolerated Discharge Activity: Activity As Tolerated, No Lifting Over 10 Pounds, Pelvic Rest Referrals: YESSICA ALCANTARA CNM [Primary Care Provider] - Follow up as needed Prescriptions: Acetaminophen with Codeine [Tylenol #3 Tablet] 1 each PO Q4HP PRN #28 tablet PRN Reason: Home Medications: Ferrous Sulfate [Iron Supplement] 325 mg PO BID 12/24/14 No.137/Iron/Folic Acd [ Vitamin Tablet] 1 each PO DAILY 12/24/14 Acetaminophen with Codeine [Tylenol #3 Tablet] 1 each PO Q4HP PRN #28 tablet 02/16/20 Ibuprofen [Motrin 800 mg Tablet] 800 mg PO Q8 tablet 02/16/20 History of Present Illiness History of Present Illness: NIRMALA LUCERO is a 34 year old female Patient came in through the ER approx 9- 12wks and having increased vaginal bleeding. US consistent with products of conception retained. Before patient was evaluated by MILL AND COAL TRANSPORT OPERATOR, ER gave patient TXA and placed a Bakri Balloon, and initiated transfusion. Upon evaluation by MILL AND COAL TRANSPORT OPERATOR Hct 32.5 (before transfusion completed) and decision was made to proceed to the OR for suction D&C. GC/CT negative. COVID negative. Hospital Course Hospital Course: Patient came in through the ER approx 9-12wks and having increased vaginal bleeding. US consistent with products of conception retained. Before patient was evaluated by MILL AND COAL TRANSPORT OPERATOR, ER gave patient TXA and placed a Bakri Balloon, and initiated transfusion. Upon evaluation by MILL AND COAL TRANSPORT OPERATOR Hct 32.5 (before transfusion completed) and decision was made to proceed to the OR for suction D&C. GC/CT negative. COVID negative. Underwent uncomplicated D&C. postop Hct stable and patient with scant bleeding. She meets criteria to discharge home. Physical Exam - Physical Exam Vital Signs: Temp Pulse Resp BP Pulse Ox 98.0 F 89 16 130/80 H 100 02/16/20 18:46 02/16/20 18:46 02/16/20 18:46 02/16/20 18:46 02/16/20 18:46 Intake & Output 02/15/20 02/16/20 02/17/20 06:59 06:59 06:59 Intake Total 1999 1000 Balance 1999 1000 Weight 65.771 kg General appearance: PRESENT: no acute distress, well-developed, well-nourished Head exam: PRESENT: atraumatic, normocephalic Respiratory exam: PRESENT: clear to auscultation fortunato, symmetrical, unlabored Cardiovascular exam: PRESENT: RRR. ABSENT: diastolic murmur, rubs, systolic murmur Pulses: PRESENT: normal dorsalis pedis pul, +2 pedal pulses bilateral GI/Abdominal exam: PRESENT: normal bowel sounds, soft. ABSENT: distended, guarding, mass, organolmegaly, rebound, tenderness Rectal exam: PRESENT: deferred Extremities exam: PRESENT: full ROM. ABSENT: calf tenderness, clubbing, pedal edema Neurological exam: PRESENT: alert, awake, oriented to person, oriented to place, oriented to time, oriented to situation, CN II-XII grossly intact. ABSENT: motor sensory deficit Psychiatric exam: PRESENT: appropriate affect, normal mood. ABSENT: homicidal ideation, suicidal ideation Skin exam: PRESENT: dry, intact, warm. ABSENT: cyanosis, rash - Gynecological Exam Labia: normal Urethra: normal Introitus: normal Perineum: normal, other - Pad with small amount of bleeding. NO clots Results Laboratory Results: WBC 8.8 10^3/uL (4.0-10.5) 02/16/20 20:09 RBC 4.31 10^6/uL (3.72-5.28) 02/16/20 20:09 Hgb 12.7 g/dL (12.0-15.5) 02/16/20 20:09 Hct 37.7 % (36.0-47.0) 02/16/20 20: MCV 88 fl (80-97) 02/16/20 20:09 MCH 29.4 pg (27.0-33.4) 02/16/20 20:09 MCHC 33.6 g/dL (32.0-36.0) 02/16/20 20: RDW 14.3 % (11.5-14.0) H 02/16/20 20:09 Plt Count 182 10^3/uL (150-450) 02/16/20 20:09 Lymph % (Auto) 6.9 % (13-45) L 02/16/20 20: [place] % (Auto) 1.9 % (3-13) L 02/16/20 20:09 Eos % (Auto) 0.0 % (0-6) 02/16/20 20: Baso % (Auto) 0.3 % (0-2) 02/16/20 20:09 Absolute Neuts (auto) 8.0 10^3/uL (1.7-8.2) 02/16/20 20:09 Absolute Lymphs (auto) 0.6 10^3/uL (0.5-4.7) 02/16/20 20:09 Absolute Monos (auto) 0.2 10^3/uL (0.1-1.4) 02/16/20 20:09 Absolute Eos (auto) 0.0 10^3/uL (0.0-0.6) 02/16/20 20:09 Absolute Basos (auto) 0.0 10^3/uL (0.0-0.2) 02/16/20 20:09 Seg Neutrophils % 90.9 % (42-78) H 02/16/20 20:09 PT 13.9 SEC (11.4-15.4) 02/16/20 02:20 INR 1.07 02/16/20 02:20 APTT 29.6 SEC (23.5-35.8) 02/16/20 02:20 Sodium 138.1 mmol/L (137-145) 02/16/20 02:20 Potassium 3.5 mmol/L (3.6-5.0) L 02/16/20 02:20 Chloride 107 mmol/L (98-107) 02/16/20 02:20 Carbon Dioxide 21 mmol/L (22-30) L 02/16/20 02:20 Anion Gap 10 (5-19) 02/16/20 02:20 BUN 9 mg/dL (7-20) 02/16/20 02:20 Creatinine 0.62 mg/dL (0.52-1.25) 02/16/20 02:20 Est GFR ( Amer) > 60 (>60) 02/16/20 02:20 Est GFR (MDRD) Non-Af > 60 (>60) 02/16/20 02:20 Glucose 129 mg/dL (75-110) H 02/16/20 02:20 POC Glucose 103 mg/dL (70-110) 02/16/20 06:30 Calcium 9.2 mg/dL (8.4-10.2) 02/16/20 02:20 Total Bilirubin 0.5 mg/dL (0.2-1.3) 02/16/20 02:20 Direct Bilirubin 0.0 mg/dL (0.0-0.4) 02/16/20 02:20 Neonat Total Bilirubin Not Reportable 02/16/20 02:20 Neonat Direct Bilirubin Not Reportable 02/16/20 02:20 Neonat Indirect Bili Not Reportable 02/16/20 02:20 AST 19 U/L (14-36) 02/16/20 02:20 ALT 11 U/L (<35) 02/16/20 02:20 Alkaline Phosphatase 64 U/L (38-126) 02/16/20 02:20 Total Protein 7.3 g/dL (6.3-8.2) 02/16/20 02:20 Albumin 4.0 g/dL (3.5-5.0) 02/16/20 02:20 Beta HCG, Quant 4114.00 mIU/mL (0.0-6.15) H 02/16/20 02:20 Total Beta HCG POSITIVE (NEGATIVE) 02/16/20 02:20 Urine Color RED 02/16/20 16:19 Urine Appearance TURBID 02/16/20 16:19 Urine pH 6.0 (5.0-9.0) 02/16/20 16:19 Ur Specific [place] 1.009 02/16/20 16:19 Urine Protein 100 mg/dL (NEGATIVE) H 02/16/20 16:19 Urine Glucose (UA) NEGATIVE mg/dL (NEGATIVE) 02/16/20 16:19 Urine Ketones NEGATIVE mg/dL (NEGATIVE) 02/16/20 16:19 Urine Blood MODERATE (NEGATIVE) H 02/16/20 16:19 Urine Nitrite (Reflex) NEGATIVE (NEGATIVE) 02/16/20 16:19 Urine Bilirubin NEGATIVE (NEGATIVE) 02/16/20 16:19 Urine Urobilinogen NEGATIVE mg/dL (<2.0) 02/16/20 16:19 Leukocyte Esterase Rfl NEGATIVE (NEGATIVE) 02/16/20 16:19 Urine RBC (Auto) >182 /HPF 02/16/20 16:19 Urine WBC (Reflex) 5 /HPF 02/16/20 16:19 Squamous Epi Cells Auto 13 /HPF 02/16/20 16:19 Urine Ascorbic Acid 40 (NEGATIVE) H 02/16/20 16:19 Chlamydia DNA (PCR) NOT DETECTED (NOT DETECT) 02/16/20 13:30 N.gonorrhoeae DNA (PCR) NOT DETECTED (NOT DETECT) 02/16/20 13:30 SARS-CoV-2 (PCR) NEGATIVE (NEGATIVE) 02/16/20 06:42 Blood Type O POSITIVE 02/16/20 03:11 Antibody Screen NEGATIVE 02/16/20 03:11 Rhogam Indicated RHOGAM NOT INDICATED 02/16/20 03:11 Crossmatch See Detail 02/16/20 03:11 Impressions: Obstetrics Ultrasound 02/16/20 02:49 IMPRESSION: No intrauterine gestational sac is seen. The endometrium is thickened and heterogeneous. There are hypoechoic areas within the vaginal canal likely representing hematoma or products of conception. These findings most likely represent a failed intrauterine . Interval follow-up is recommended to exclude retained products of conception. Obstetric follow up for routine care should be performed. Stroke Is this a Stroke Patient?: No Acute Heart Failure - Is this a Heart Failure Patient?: No
[2020-02-16] MEDS ORDERED: IBUPROFEN 800 MG TABLET ONE (21:00)
[2020-02-16] MEDS: IBUPROFEN 800 MG TABLET PO SCH (21:01)
[2020-02-16] MEDS ORDERED: ZOLPIDEM TARTRATE 5 MG TABLET PO SCH (22:00)
[2020-02-17] MEDS: IBUPROFEN 800 MG TABLET PO SCH ×2 (05:16→14:11)
--- NOTE | 2020-02-17 10:33 | PDOC DISCHARGE SUMMARY ---
Impression - Admit/DC Date/PCP Admission Date/Primary Care Provider: 02/16/20 07:17 YESSICA ALCANTARA CNM Discharge Date: 02/17/20 - Discharge Diagnosis (1) Anemia Is this a current diagnosis for this admission?: Yes (2) demise Is this a current diagnosis for this admission?: Yes (3) Incomplete Is this a current diagnosis for this admission?: Yes (5) Vaginal bleeding Is this a current diagnosis for this admission?: Yes - Assessment Summary: Patient came in through the ER approx 9-12wks and having increased vaginal bleeding. US consistent with products of conception retained. Before patient was evaluated by PRODUCTION ASSEMBLY OPERATOR, ER gave patient TXA and placed a Bakri Balloon, and initiated transfusion. Upon evaluation by PRODUCTION ASSEMBLY OPERATOR Hct 32.5 (before transfusion completed) and decision was made to proceed to the OR for suction D&C. GC/CT negative. COVID negative. - Additional Information Resuscitation Status: Full Code Discharge Diet: As Tolerated Discharge Activity: Activity As Tolerated, No Lifting Over 10 Pounds, Pelvic Rest Referrals: TRAE MORALES MD [ACTIVE STAFF] - 02/23/20 10:30 am (CALL THE OFFICE FOR ANY QUESTIONS OR CONCERNS) YESSICA ALCANTARA CNM [Primary Care Provider] - Follow up as needed Prescriptions: Acetaminophen with Codeine [Tylenol #3 Tablet] 1 each PO Q4HP PRN #28 tablet PRN Reason: Home Medications: Ferrous Sulfate [Iron Supplement] 325 mg PO BID 12/24/14 No.137/Iron/Folic Acd [ Vitamin Tablet] 1 each PO DAILY 12/24/14 Acetaminophen with Codeine [Tylenol #3 Tablet] 1 each PO Q4HP PRN #28 tablet 02/16/20 Ibuprofen [Motrin 800 mg Tablet] 800 mg PO Q8 tablet 02/16/20 History of Present Illiness History of Present Illness: NIRMALA LUCERO is a 34 year old female Hospital Course Hospital Course: Patient came in through the ER approx 9-12wks and having increased vaginal bleeding. US consistent with products of conception retained. Before patient was evaluated by PRODUCTION ASSEMBLY OPERATOR, ER gave patient TXA and placed a Bakri Balloon, and initiated transfusion. Upon evaluation by PRODUCTION ASSEMBLY OPERATOR Hct 32.5 (before transfusion completed) and decision was made to proceed to the OR for suction D&C. GC/CT negative. COVID negative. Underwent uncomplicated D&C. postop Hct stable and patient with scant bleeding. She meets criteria to discharge home. Physical Exam - Physical Exam Vital Signs: Temp Pulse Resp BP Pulse Ox 97.8 F 80 18 111/66 100 02/17/20 08:19 02/17/20 08:19 02/17/20 08:19 02/17/20 08:19 02/17/20 08:19 Intake & Output 02/16/20 02/17/20 02/18/20 06:59 06:59 06:59 Intake Total 1999 148 Balance 1999 148 Weight 65.771 kg 58.9 kg - Gynecological Exam Labia: normal Urethra: normal Introitus: normal Perineum: normal, other - Pad with small amount of bleeding. NO clots Results Laboratory Results: WBC 8.8 10^3/uL (4.0-10.5) 02/16/20 20:09 RBC 4.31 10^6/uL (3.72-5.28) 02/16/20 20:09 Hgb 12.7 g/dL (12.0-15.5) 02/16/20 20:09 Hct 37.7 % (36.0-47.0) 02/16/20 20:09 MCV 88 fl (80-97) 02/16/20 20:09 MCH 29.4 pg (27.0-33.4) 02/16/20 20:09 MCHC 33.6 g/dL (32.0-36.0) 02/16/20 20:09 RDW 14.3 % (11.5-14.0) H 02/16/20 20:09 Plt Count 182 10^3/uL (150-450) 02/16/20 20:09 Lymph % (Auto) 6.9 % (13-45) L 02/16/20 20:09 [place] % (Auto) 1.9 % (3-13) L 02/16/20 20:09 Eos % (Auto) 0.0 % (0-6) 02/16/20 20:09 Baso % (Auto) 0.3 % (0-2) 02/16/20 20:09 Absolute Neuts (auto) 8.0 10^3/uL (1.7-8.2) 02/16/20 20:09 Absolute Lymphs (auto) 0.6 10^3/uL (0.5-4.7) 02/16/20 20:09 Absolute Monos (auto) 0.2 10^3/uL (0.1-1.4) 02/16/20 20:09 Absolute Eos (auto) 0.0 10^3/uL (0.0-0.6) 02/16/20 20:09 Absolute Basos (auto) 0.0 10^3/uL (0.0-0.2) 02/16/20 20:09 Seg Neutrophils % 90.9 % (42-78) H 02/16/20 20:09 PT 13.9 SEC (11.4-15.4) 02/16/20 02:20 INR 1.07 02/16/20 02:20 APTT 29.6 SEC (23.5-35.8) 02/16/20 02:20 Sodium 138.1 mmol/L (137-145) 02/16/20 02:20 Potassium 3.5 mmol/L (3.6-5.0) L 02/16/20 02:20 Chloride 107 mmol/L (98-107) 02/16/20 02:20 Carbon Dioxide 21 mmol/L (22-30) L 02/16/20 02:20 Anion Gap 10 (5-19) 02/16/20 02:20 BUN 9 mg/dL (7-20) 02/16/20 02:20 Creatinine 0.62 mg/dL (0.52-1.25) 02/16/20 02:20 Est GFR ( Amer) > 60 (>60) 02/16/20 02:20 Est GFR (MDRD) Non-Af > 60 (>60) 02/16/20 02:20 Glucose 129 mg/dL (75-110) H 02/16/20 02:20 POC Glucose 103 mg/dL (70-110) 02/16/20 06:30 Calcium 9.2 mg/dL (8.4-10.2) 02/16/20 02:20 Total Bilirubin 0.5 mg/dL (0.2-1.3) 02/16/20 02:20 Direct Bilirubin 0.0 mg/dL (0.0-0.4) 02/16/20 02:20 Neonat Total Bilirubin Not Reportable 02/16/20 02:20 Neonat Direct Bilirubin Not Reportable 02/16/20 02:20 Neonat Indirect Bili Not Reportable 02/16/20 02:20 AST 19 U/L (14-36) 02/16/20 02:20 ALT 11 U/L (<35) 02/16/20 02:20 Alkaline Phosphatase 64 U/L (38-126) 02/16/20 02:20 Total Protein 7.3 g/dL (6.3-8.2) 02/16/20 02:20 Albumin 4.0 g/dL (3.5-5.0) 02/16/20 02:20 Beta HCG, Quant 1121.60 mIU/mL (0.0-6.15) H 02/16/20 20:09 Total Beta HCG POSITIVE (NEGATIVE) 02/16/20 20:09 Urine Color RED 02/16/20 16:19 Urine Appearance TURBID 02/16/20 16:19 Urine pH 6.0 (5.0-9.0) 02/16/20 16:19 Ur Specific [place] 1.009 02/16/20 16:19 Urine Protein 100 mg/dL (NEGATIVE) H 02/16/20 16:19 Urine Glucose (UA) NEGATIVE mg/dL (NEGATIVE) 02/16/20 16:19 Urine Ketones NEGATIVE mg/dL (NEGATIVE) 02/16/20 16:19 Urine Blood MODERATE (NEGATIVE) H 02/16/20 16:19 Urine Nitrite (Reflex) NEGATIVE (NEGATIVE) 02/16/20 16:19 Urine Bilirubin NEGATIVE (NEGATIVE) 02/16/20 16:19 Urine Urobilinogen NEGATIVE mg/dL (<2.0) 02/16/20 16:19 Leukocyte Esterase Rfl NEGATIVE (NEGATIVE) 02/16/20 16:19 Urine RBC (Auto) >182 /HPF 02/16/20 16:19 Urine WBC (Reflex) 5 /HPF 02/16/20 16:19 Squamous Epi Cells Auto 13 /HPF 02/16/20 16:19 Urine Ascorbic Acid 40 (NEGATIVE) H 02/16/20 16:19 Chlamydia DNA (PCR) NOT DETECTED (NOT DETECT) 02/16/20 13:30 N.gonorrhoeae DNA (PCR) NOT DETECTED (NOT DETECT) 06/11/20 13:30 SARS-CoV-2 (PCR) NEGATIVE (NEGATIVE) 02/16/20 06:42 Blood Type O POSITIVE 02/16/20 03:11 Antibody Screen NEGATIVE 02/16/20 03:11 Rhogam Indicated RHOGAM NOT INDICATED 02/16/20 03:11 Crossmatch See Detail 02/16/20 03:11 Impressions: Obstetrics Ultrasound 02/16/20 02:49 IMPRESSION: No intrauterine gestational sac is seen. The endometrium is thickened and heterogeneous. There are hypoechoic areas within the vaginal canal likely representing hematoma or products of conception. These findings most likely represent a failed intrauterine . Interval follow-up is recommended to exclude retained products of conception. Obstetric follow up for routine care should be performed. Stroke Is this a Stroke Patient?: No Acute Heart Failure - Is this a Heart Failure Patient?: No
--- NOTE | 2020-02-17 10:54 | ER Document Report ---
Doctor's Note Notes: 02/16/20 06:30 At approximately 5:20 AM I was notified of patient's heart rate being elevated in the 150s to 170s. I reviewed patient prior Primalev, EKG, prior assessments, discussed with PA director need to more aggressively intervene to stabilize patient. I have patient moved to trauma bay and placed in Trendelenburg and ordered emergency release blood, TXA, and placed Bakri balloon. Patient's heart rate improved to 110s to 120s, BP remained normal. Patient remained relatively improved until being taken to the OR by FINAL DRESSING CUTTER.
[2020-02-17 11:24] VITALS: BP 130/80
== END 2020-02-17 14:15 | disposition home or self-care (01) ==
LOC: ER 01:32 → EH 07:17 → INTOOBSV 07:17 → 2N 09:39
PROVIDERS: ADMIT Obstetrics & Gynecology; ATTEND Obstetrics & Gynecology
DX: O03.39 Incomplete spontaneous abortion with other complications (principal); D64.9 Anemia, unspecified; O03.1 Delayed or excessive hemorrhage following incomplete spontaneous abortion; R00.0 Tachycardia, unspecified; Z03.818 Encounter for observation for suspected exposure to other biological agents ruled out
CPT/HCPCS: 93005; 99285; 96361; 96374; 86900; 86901; 36415; 36430; 86850; 82962; 84702; 85025; 85610; 85730; 87635; 80053; 81001; 86920; 87491; 87591; 88305 ×2; 76801; 93976; 93010; 59812; P9016; J2250; J1100; J3490 ×3; J1885; J3010; J2405; J7060; J7121; J7030; J7120 ×2; J2704; C9803; 1965; 99140; G0378; J0690; J2210

== ENCOUNTER → 2020-07-09 | Outpatient (CLI) | payer SELFPAY ==
--- NOTE | 2020-07-09 14:03 | RADIOLOGY REPORT (SQ) ---
EXAM DESCRIPTION: U/S FD3JITC TRNABD 1GES W/ODOP IMAGES COMPLETED DATE/TIME: 07/09/2020 1:24 pm REASON FOR STUDY: ENCOUNTER FOR SCREENING OF OTHER NORMAL , FIRST TRIMESTER Z34.[address] FOR SUPRVSN OF NORMAL , FIRST TRIM COMPARISON: 02/14/2020 TECHNIQUE: Transabdominal static and realtime grayscale images acquired of the pelvis. Additional se lected spectral and color Doppler images recorded. All images stored on PACs. CG: Not available. CLINICAL DATES: LMP 05/12/2020 8 weeks 2 days LIMITATIONS: None. FINDINGS: FETUS: Single Living intrauterine . ULTRASOUND EGA: 7 weeks 1 day ULTRASOUND MANOLO: 02/24/2021 EFW: Not applicable less than 20 weeks. CRL: 1.03 cm FHR: 152 beats per minute. SURVEY: Too early to assess. AMNIOTIC FLUID: Adequate amount. PLACENTA: Not yet developed due to early gestation. SUBCHORIONIC BLEED: No SIZE OF BLEED: Not applicable. UTERUS: No masses. No anomalies. CERVICAL LENGTH: 3 cm. Closed. RIGHT ADNEXA: Normal ovary with normal vascular flow. 4 x 3 x 3 cm No adnexal free fluid. No adnexal masses. LEFT ADNEXA: Normal ovary with normal vascular flow. 3 x 2 x 2 cm No adnexal free fluid. No adnexal masses. FREE FLUID: None. OTHER: No other significant finding. IMPRESSION: LIVING INTRAUTERINE . EGA 7 weeks 1 day Trimester of : First trimester - 0 to 13 weeks. TECHNICAL DOCUMENTATION: JOB ID: [id number] 2010 [employer]- All Rights Reserved Reading location - IP/workstation name: [email or web address]
== END ==
LOC: RAD 13:16
PROVIDERS: ATTEND Midwife
DX: Z34.81 Encounter for supervision of other normal pregnancy, first trimester (principal); Z3A.01 Less than 8 weeks gestation of pregnancy
CPT/HCPCS: 76801

== ENCOUNTER 2020-07-10 08:13 | Emergency (ER) | payer SELFPAY ==
[2020-07-10 08:36] VITALS: BP 136/81
[2020-07-10 08:58] LABS: APPEARANCE,URINE CLEAR; BILIRUBIN,URINE NEGATIVE (NEGATIVE); COLOR,URINE STRAW; GLUCOSE, URINE NEGATIVE (NEGATIVE); KETONES,URINE NEGATIVE (NEGATIVE); LEUKOCYTE ESTERASE,URINE SMALL (NEGATIVE); NITRITE,URINE NEGATIVE (NEGATIVE); PROTEIN,URINE NEGATIVE (NEGATIVE); URINE SPECIFIC GRAVITY 1.005; UROBILINOGEN,URINE NEGATIVE mg/dL (<2.0)
[2020-07-10 09:21] LABS: ABSOLUTE BASOPHILS # (AUTO) 0.1 10^3/uL (0.0-0.2); ABSOLUTE LYMPHOCYTES (AUTO) 1.2 10^3/uL (0.5-4.7); ABSOLUTE MONOCYTES (AUTO) 0.3 10^3/uL (0.1-1.4); ABSOLUTE NEUT (AUTO) 5.2 10^3/uL (1.7-8.2); BASOPHILS % (AUTO) 0.8 % (0-2); EOSINOPHILS % (AUTO) 0.5 % (0-6); HEMATOCRIT 36.8 % (36.0-47.0); HEMOGLOBIN 12.1 g/dL (12.0-15.5); LYMPHOCYTES % (AUTO) 17.3 % (13-45); MEAN CORPUSCULAR HEMOGLOBIN 27.3 pg (27.0-33.4); MEAN CORPUSCULAR VOLUME 83 fl (80-97); PLATELET COUNT 213 10^3/uL (150-450); RED BLOOD COUNT 4.45 10^6/uL (3.72-5.28); RED CELL DISTRIBUTION WIDTH 14.8 % (11.5-14.0); SEGMENTED NEUTROPHILS % (AUTO) 76.4 % (42-78); TOTAL CELLS COUNTED % (AUTO) 100 %; WHITE BLOOD COUNT 6.8 10^3/uL (4.0-10.5)
[2020-07-10 09:42] LABS: ALBUMIN 4.6 g/dL (3.5-5.0); ALKALINE PHOSPHATASE 62 U/L (38-126); ANION GAP 12 (5-19); ASPARTATE AMINO TRANSFERASE 20 U/L (14-36); BILIRUBIN,TOTAL 0.5 mg/dL (0.2-1.3); BLOOD UREA NITROGEN 6 mg/dL (7-20); CALCIUM 9.7 mg/dL (8.4-10.2); CARBON DIOXIDE 20 mmol/L (22-30); CHLORIDE 105 mmol/L (98-107); GLUCOSE 91 mg/dL (75-110); TOTAL PROTEIN 7.9 g/dL (6.3-8.2)
--- NOTE | 2020-07-10 10:14 | ER Document Report ---
ED General - General Chief Complaint: Vag Bleeding, +preg <12wks Stated Complaint: VAGINAL BLEEDING Time Seen by Provider: 07/10/20 10:10 Primary Care Provider: AGUS VU MD [ACTIVE STAFF] - Follow up in 3-5 days (or sooner if needed) YESSICA ALCANTARA CNM [Primary Care Provider] - Follow up as needed TRAVEL OUTSIDE OF THE [place] IN LAST 30 DAYS: No - HPI Notes: 34-year-old female G8, P6 7 weeks 2 days presents to the emergency room today for light vaginal bleeding that started around 0640 this morning. reports she has not used any sanitary pads or tampons. Reports she lost a baby in March 2020 at 8 weeks, she did have a D&C at 12 weeks. Denies any fevers or chills. Has not contacted her SENIOR SOLUTIONS ARCHITECT. Denies any chest pain, shortness of breath, nausea vomiting diarrhea, fevers or chills. Denies any trauma to her abdomen or pelvic area. - Related Data Allergies/Adverse Reactions: No Known Allergies Allergy (Verified 07/10/20 08:26) Past Medical History - General Information source: Patient - Social History Smoking Status: Never Smoker Chew tobacco use (# tins/day): No Frequency of alcohol use: None Drug Abuse: None Family History: Reviewed & Not Pertinent Patient has homicidal ideation: No Psychiatric Medical History: Reports: Hx Depression Review of Systems - Review of Systems Constitutional: No symptoms reported EENT: No symptoms reported Cardiovascular: No symptoms reported Respiratory: No symptoms reported Gastrointestinal: No symptoms reported Genitourinary: No symptoms reported Female Genitourinary: See HPI Musculoskeletal: No symptoms reported Skin: No symptoms reported Hematologic/Lymphatic: No symptoms reported Neurological/Psychological: No symptoms reported Physical Exam - Vital signs Vitals: Temp Pulse Resp BP Pulse Ox 98.5 F 100 18 136/81 H 100 07/10/20 08:15 07/10/20 08:15 07/10/20 08:15 07/10/20 08:15 07/10/20 08:15 - Notes Notes: MEDICATIONS: I agree with the patient medications as charted by the RN. ALLERGIES: I agree with the allergies as charted by the RN. PAST MEDICAL HISTORY/PAST SURGICAL HISTORY: Reviewed and agree as charted by RN. SOCIAL HISTORY: Reviewed and agree as charted by RN. FAMILY HISTORY: No significant familial comorbid conditions directly related to patient complaint EXAM: Reviewed vital signs as charted by RN. PHYSICAL EXAMINATION: reviewed vital signs by RN GENERAL: Well-appearing, well-nourished and in no acute distress. HEAD: Atraumatic, normocephalic. EYES: Pupils equal round and reactive to light, extraocular movements intact, conjunctiva are normal. ENT: Nares patent, oropharynx clear without exudates. Moist mucous membranes. NECK: Normal range of motion, supple without lymphadenopathy LUNGS: Breath sounds clear to auscultation bilaterally and equal. No wheezes rales or rhonchi. HEART: Regular rate and rhythm without murmurs ABDOMEN: Soft, nontender, nondistended abdomen. No guarding, no rebound. No masses appreciated. Female : External genitalia without erythema, exudate or discharge. Vaginal vault is without discharge. Cervix is of normal color without lesion. Uterus is noted to be of normal size and nontender. No cervical motion tenderness is seen. No masses are palpated. No blood in the vaginal vault without clots, os closed, no adnexal tenderness or mass Musculoskeletal: Normal range of motion, no pitting or edema. No cyanosis. NEUROLOGICAL: Cranial nerves grossly intact. Normal speech, normal gait. Normal sensory, motor exams PSYCH: Normal mood, normal affect. SKIN: Warm, Dry, normal turgor, no rashes or lesions noted. Course - Re-evaluation Re-evalutation: 07/10/20 10:52 Afebrile vital stable no distress. Nurses notes reviewed. CBC negative for leukocytosis or anemia, CMP negative for hepatic or renal dysfunction, quantitative hCG 137,750. Patient's wet mount does show that she had bacterial vaginosis, will treat per standard of care. Pelvic ultrasound does show that patient has a subchorionic bleed she is 7 days and 6 weeks. heart rate is 157. Urinalysis does show leukoesterase hematuria, urine culture pending. Will treat with Macrobid. Consulted with Dr. Daniel Vu, SENIOR SOLUTIONS ARCHITECT on-call at 1201 regarding pertinent laboratory diagnostic and clinical findings. Advised pelvic rest and to follow-up with the health department which she is currently following up with or with her office. Patient verbalized an understanding of this plan of care and agreed with plan of care. After performing a Medical Screening Examination, I estimate there is LOW risk for ACUTE APPENDICITIS, AMANUEL L OBSTRUCTION, ACUTE CHOLECYSTITIS, PERFORATED DIVERTICULITIS, INCARCERATED HERNIA, PANCREATITIS, PELVIC INFLAMMATORY DISEASE, PERFORATED ULCER, ECTOPIC , or TUBO-OVARIAN ABSCESS, thus I consider the discharge disposition reasonable. Also, there is no evidence or peritonitis, sepsis, or toxicity. I have reevaluated this patient multiple times and no significant life threatening changes are noted. The patient and I have discussed the diagnosis and risks, and we agree with discharging home with close follow-up with the understanding that symptoms and presentations can change. We also discussed returning to the Emergency Department immediately if new or worsening symptoms occur. We have discussed the symptoms which are most concerning (e.g., bloody stool, fever, changing or worsening pain, vomiting) that necessitate immediate return. - Vital Signs Vital signs: Temp Pulse Resp BP Pulse Ox 98.5 F 100 18 136/81 H 100 07/10/20 08:15 07/10/20 08:15 07/10/20 08:15 07/10/20 08:15 07/10/20 08:15 - Laboratory Result Diagrams: 07/10/20 08:53 07/10/20 08:53 Laboratory results interpreted by me: 07/10/20 07/10/20 07/10/20 08:18 08:53 08:53 RDW 14.8 H Carbon Dioxide 20 L BUN 6 L Beta HCG, Quant 879307.00 H Urine Blood MODERATE H Ur Leukocyte Esterase SMALL H Discharge - Discharge Clinical Impression: UTI (urinary tract infection), , Subchorionic bleed, Bacterial vaginosis Condition: Stable Disposition: HOME, SELF-CARE Instructions: Bleeding During Early ([facility]), Nitrofurantoin ([facility]), Urinary Tract Infection ([facility]), Vaginosis, Bacterial ([facility]) Additional Instructions: Your ultrasound today showed that you have a subchorionic bleed, is advised that you do pelvic rest, no sexual intercourse, no tampons, rest as much as you can. Please follow-up with the SENIOR SOLUTIONS ARCHITECT or the health department within the next 24 to 48 hours. You did show to have bacterial vaginosis today, we will treat that with Flagyl, it is twice a day for 7 days. Return immediately for any new or worsening symptoms. Follow up with primary care provider, call tomorrow to make followup appointment. Prescriptions: Metronidazole [Flagyl] 500 mg PO BID #14 tablet Nitrofurantoin Monohyd/M-Cryst [Macrobid 100 mg Capsule] 100 mg PO BID #14 cap Forms: Return to Work Referrals: YESSICA ALCANTARA CNM [Primary Care Provider] - Follow up as needed AGUS VU MD [ACTIVE STAFF] - Follow up in 3-5 days (or sooner if needed)
[2020-07-10 10:55] LABS: BACTERIA (WET MOUNT) 3+ BACTERIA SEEN; EPITHELIALS (WET MOUNT) 3+ EPITHELIALS SEEN; T.VAGINALIS (WET MOUNT) NO TRICHOMONAS SEEN; WBCS (WET MOUNT) 1+ WBCS SEEN; YEAST (WET MOUNT) NO YEAST SEEN
--- NOTE | 2020-07-10 11:47 | RADIOLOGY REPORT (SQ) ---
EXAM DESCRIPTION: U/S [id number] TRNABD 1GES W/ODOP IMAGES COMPLETED DATE/TIME: 07/10/2020 11:19 am REASON FOR STUDY: vag bleeding at 0640am, 7am COMPARISON: 07/09/2020. TECHNIQUE: Transabdominal static and realtime grayscale images acquired of the pelvis. Additional se lected spectral and color Doppler images recorded. All images stored on PACs. bHC,750. CLINICAL DATES: 8 week 3 day. LIMITATIONS: None. FINDINGS: FETUS: Single Living intrauterine . ULTRASOUND EGA: 7 week 6 day. ULTRASOUND MANOLO: 02/20/2021. EFW: Not applicable less than 20 weeks. CRL: 1.47 cm. FHR: 157 beats per minute. SURVEY: No visualized anomalies. AMNIOTIC FLUID: Adequate amount. PLACENTA: Not yet developed due to early gestation. SUBCHORIONIC BLEED: Yes. SIZE OF BLEED: 0.8 x 1.0 x 2.0 cm. UTERUS: Possible small, 1 cm, fibroid. No anomalies. CERVICAL LENGTH: 4.1 cm. Closed. RIGHT ADNEXA: Normal ovary with normal vascular flow. No adnexal free fluid. Corpus Luteum measuring 1.9 cm. LEFT ADNEXA: Normal ovary with normal vascular flow. No adnexal free fluid. No adnexal masses. FREE FLUID: None. OTHER: No other significant finding. IMPRESSION: LIVING INTRAUTERINE . EGA 7 WEEK 6 DAY. SUBCHORIONIC BLEED. Trimester of : First trimester - 0 to 13 weeks. TECHNICAL DOCUMENTATION: JOB ID: [id number] [employer]- All Rights Reserved Reading location - IP/workstation name: [email or web address]
[2020-07-10 12:21] LABS: CHLAM PCR NOT DETECTED (NOT DETECT)
== END 2020-07-10 12:12 | disposition home or self-care (01) ==
LOC: ER 08:13
DX: O20.8 Other hemorrhage in early pregnancy (principal); O23.591 Infection of other part of genital tract in pregnancy, first trimester; B96.89 Other specified bacterial agents as the cause of diseases classified elsewhere; O23.41 Unspecified infection of urinary tract in pregnancy, first trimester; Z3A.01 Less than 8 weeks gestation of pregnancy
CPT/HCPCS: 36415; 76801; 80053; 81001; 83690; 84702; 85025; 86900; 86901; 87210; 87491; 87591; 99284

== ENCOUNTER → 2020-10-05 | Outpatient (CLI) | payer SELFPAY ==
--- NOTE | 2020-10-05 14:33 | RADIOLOGY REPORT (SQ) ---
EXAM DESCRIPTION: U/S OB 14+ TRNABD 1GES W/O DOP IMAGES COMPLETED DATE/TIME: 10/05/2020 1:55 pm REASON FOR STUDY: ENCOUNTER FOR SUPERVISION OF OTHER NORMAL , SECOND TRIMESTER Z34.82 ENCO UNTER FOR SUPRVSN OF NORMAL , SECOND TRI COMPARISON: None. TECHNIQUE: Static and Dynamic grayscale imaging performed of gravid uterus using transabdominal appr oach. Additional selected color Doppler and spectral images recorded. All stored on PACS. LIMITATIONS: None. FINDINGS: FETUSES SEEN:1 EGA: 20 weeks, 2 day is Calculated using BPD,FL,HC,AC documented on images. No discrepancy with clin ical dates. MANOLO: 02/20/2021 EFW: 351 grams PERCENTILE: Not applicable. Fetus less than or equal to 20 weeks gestation. LVP: 6.0 cm PLACENTA: Posterior. PRESENTATION: Variable. ANATOMY: HEART RATE: 150 beats per minute. FOUR CHAMBER HEART: Visualized. THREE VESSEL CORD: Yes. CORD INSERTION: Visualized. KIDNEYS AND BLADDER: Visualized. Appear normal. STOMACH: Visualized. Appears normal. SPINE: Normal as visualized. BRAIN AND LATERAL VENTRICLES: Visualized. Appear normal. OTHER: No other significant finding. MATERNAL ADNEXA: Maternal ovaries not visualized. CERVICAL LENGTH: 3.4 cm Closed. OTHER: No other significant finding. IMPRESSION: LIVING INTRAUTERINE . ESTIMATED GESTATIONAL AGE 20 weeks, 2 days NO VISUALIZED ANOMALIES. Trimester of : Second trimester - 13 weeks 1 day to 27 weeks 6 days. TECHNICAL DOCUMENTATION: JOB ID: [id number] [email or web address]- All Rights Reserved Reading location - IP/workstation name: [email or web address]
== END ==
LOC: RAD 14:15
PROVIDERS: ATTEND Midwife
DX: Z34.82 Encounter for supervision of other normal pregnancy, second trimester (principal); Z3A.20 20 weeks gestation of pregnancy
CPT/HCPCS: 76805